=== PATIENT | male | born 1970 | race Two or more races ===

== ENCOUNTER 2018-01-17 14:57 | Inpatient (IN) | payer OTHER ==
[2018-01-17] VITALS (7 sets, daily range): BP systolic 95–129; BP diastolic 41–76
[~2018-01-17] VITALS: Ht 165.1 cm; Wt 73.1 kg
[2018-01-17] MEDS ORDERED: SODIUM CHLORIDE 0.9% 1,000 ML IV ONE ×2 (15:02)
[2018-01-17] MEDS ORDERED: PANTOPRAZOLE 40 MG/10 ML VIAL IV ONE (15:15)
[2018-01-17] MEDS ORDERED: ONDANSETRON HCL 4 MG/2 ML VIAL IV ONE (15:30)
[2018-01-17] MEDS ORDERED: MORPHINE SULFATE 4 MG/ML SYR/VIAL IV ONE (15:30)
[2018-01-17 15:46] LABS: Hematocrit 13.6 % (41.0-53.0); Mean Corpuscular Hemoglobin 21.1 pg (28.0-32.0); Mean Corpuscular Volume 70.2 fL (80.0-100.0); Platelet Count (auto) 285 10^3/uL (140-450); Red Blood Cells 1.94 10^6/uL (4.5-5.90); White Blood Cell 4.6 10^3/uL (4.4-10.8)
[2018-01-17 16:01] LABS: INR 0.94 (0.9-1.15); Partial Thromboplastin Time 17.7 sec (23.78-33.04); Prothrombin Time 10.1 sec (9.27-12.13)
[2018-01-17 16:03] LABS: Hemoglobin 4.1 g/dL (13.5-17.5); Red Cell Distribution Width 21.2 % (11.8-14.3)
[2018-01-17 16:04] LABS: Alanine Aminotransferase 20 U/L (16-61); Albumin 3.3 g/dL (3.4-5.0); Alkaline Phosphatase 56 U/L (45-117); Anion Gap 4 (5-15); Aspartate Aminotransferase 11 U/L (15-37); BUN/Creatinine Ratio 11.4; Bilirubin, Total 0.3 mg/dL (0.2-1.0); Blood Urea Nitrogen 9 mg/dL (7-18); Calcium 7.5 mg/dL (8.5-10.1); Carbon Dioxide 26 mmol/L (21-32); Chloride 112 mmol/L (98-107); GFR African American 135 mL/min; GFR Non-African American 111 mL/min; Glucose 99 mg/dL (74-106); Potassium 3.6 mmol/L (3.5-5.1); Sodium 142 mmol/L (136-145); Total Protein 6.6 g/dL (6.4-8.2)
[2018-01-17 16:05] LABS: Band Neutrophils % (manual) 0; Basophils % (manual) 0 (0.0-2.0); Blast Cells 0; Eosinophils % (manual) 0 (0-7); Metamyelocytes % 0; Myelocytes % 0; Promyelocytes % 0; Reactive Lymphocytes 0
[2018-01-17] MEDS ORDERED: TAMSULOSIN HYDROCHLORIDE 0.4 MG CAP PO ONE (17:15)
[2018-01-17 17:33] LABS: Lymphocytes % (manual) 22 (10.0-50.0); Monocytes % (manual) 9 (0-12)
[2018-01-17] MEDS ORDERED: NITROGLYCERIN 0.4 MG SL TAB SL PRN (17:45)
[2018-01-17] MEDS ORDERED: MORPHINE SULF INJ 2 MG/ML SYRINGE 1ML IV PRN (17:45)
[2018-01-17] MEDS: metFORMIN HYDROCHLORIDE 500 MG TAB PO SCH (17:49)
[2018-01-17] MEDS ORDERED: DEXTROSE (50%) 50ML SYRG IV PRN (18:00)
[2018-01-17 18:11] LABS: Urine Bacteria NONE SEEN /hpf (None Seen); Urine Blood Negative /uL (Negative); Urine Specific Gravity 1.004 (1.001-1.035); Urine WBC <1 /hpf (0 - 3)
[2018-01-17] MEDS: ACCU-CHEK COMFORT CURVE STRIP VI SCH (21:32)
[2018-01-17] MEDS: FERROUS SULFATE 325 MG TAB PO SCH (21:32)
[2018-01-17] MEDS: InsuLIN REG 1unit/0.01ml Soln (100units/ml) SC SCH (21:32)
[2018-01-18] VITALS (25 sets, daily range): BP systolic 84–117; BP diastolic 49–85
[2018-01-18] MEDS: ACCU-CHEK COMFORT CURVE STRIP VI SCH ×4 (06:34→22:00)
[2018-01-18] MEDS: SODIUM CHLORIDE 0.9% 1,000 ML IV SCH ×3 (06:35→13:45)
[2018-01-18] MEDS: InsuLIN REG 1unit/0.01ml Soln (100units/ml) SC SCH ×4 (06:35→22:00)
[2018-01-18 07:42] LABS: Basophils # (auto) 0 uL; Eosinophils # (auto) 0 uL; Red Cell Distribution Width 18.9 % (11.8-14.3); White Blood Cell 4.6 10^3/uL (4.4-10.8)
[2018-01-18 07:44] LABS: Basophils % (auto) 0.3 % (0.0-2.0); Eosinophils % (auto) 0.3 % (0.0-7.0); Hematocrit 21.5 % (41.0-53.0); Lymphocytes # (auto) 0.6 uL; Mean Corpuscular Volume 75.2 fL (80.0-100.0); Monocytes # (auto) 0.4 uL; Monocytes % (auto) 9.2 % (0.0-12.0); Neutrophils # (auto) 3.6 uL; Neutrophils % (auto) 77.2 % (37.0-80.0); Nucleated Red Blood Cells % 1.9 %; Platelet Count (auto) 219 10^3/uL (140-450); Red Blood Cells 2.86 10^6/uL (4.5-5.90)
[2018-01-18 08:07] LABS: Hemoglobin 6.9 g/dL (13.5-17.5)
[2018-01-18] MEDS: metFORMIN HYDROCHLORIDE 500 MG TAB PO SCH ×2 (08:10→17:22)
[2018-01-18 08:36] LABS: Urine Bacteria FEW /hpf (None Seen); Urine Blood Negative /uL (Negative); Urine Specific Gravity 1.007 (1.001-1.035); Urine WBC 1 /hpf (0 - 3)
[2018-01-18] MEDS: FERROUS SULFATE 325 MG TAB PO SCH ×3 (09:52→22:18)
[2018-01-18] MEDS: PANTOPRAZOLE 40 MG/10 ML VIAL IV SCH ×2 (09:52→22:18)
[2018-01-19] VITALS (7 sets, daily range): BP systolic 93–142; BP diastolic 54–81
[2018-01-19 06:15] LABS: Basophils # (auto) 0 uL; Hemoglobin 8.3 g/dL (13.5-17.5); Nucleated Red Blood Cells % 2.9 %
[2018-01-19 06:18] LABS: Basophils % (auto) 0.7 % (0.0-2.0); Eosinophils # (auto) 0 uL; Eosinophils % (auto) 0.7 % (0.0-7.0); Hematocrit 25.6 % (41.0-53.0); Lymphocytes % (auto) 20.1 % (10.0-50.0); Mean Corpuscular Hemoglobin 24.5 pg (28.0-32.0); Mean Corpuscular Hgb Conc. 32.2 g/dL (32.0-36.0); Mean Corpuscular Volume 76.2 fL (80.0-100.0); Monocytes # (auto) 0.5 uL; Monocytes % (auto) 9.6 % (0.0-12.0); Neutrophils # (auto) 3.4 uL; Neutrophils % (auto) 68.9 % (37.0-80.0); Platelet Count (auto) 200 10^3/uL (140-450); Red Blood Cells 3.37 10^6/uL (4.5-5.90); Red Cell Distribution Width 18.1 % (11.8-14.3)
[2018-01-19] MEDS: SODIUM CHLORIDE 0.9% 1,000 ML IV SCH ×3 (06:31→19:45)
[2018-01-19] MEDS: InsuLIN REG 1unit/0.01ml Soln (100units/ml) SC SCH ×4 (06:45→22:00)
[2018-01-19] MEDS: ACCU-CHEK COMFORT CURVE STRIP VI SCH ×4 (06:45→22:00)
[2018-01-19] MEDS: metFORMIN HYDROCHLORIDE 500 MG TAB PO SCH ×2 (08:14→17:44)
[2018-01-19] MEDS: FERROUS SULFATE 325 MG TAB PO SCH ×2 (09:35→22:07)
[2018-01-19] MEDS: PANTOPRAZOLE 40 MG/10 ML VIAL IV SCH ×2 (09:35→22:07)
[2018-01-19] MEDS ORDERED: ATOR10TA PO (16:48)
[2018-01-19] MEDS ORDERED: METF-370 PO (16:48)
[2018-01-19] MEDS ORDERED: FERR-20 PO (16:48)
[2018-01-19] MEDS ORDERED: RANI-229 PO (16:48)
[2018-01-19] MEDS ORDERED: DOCU100T15 PO (16:48)
[2018-01-20 06:18] LABS: Basophils # (auto) 0 uL; Eosinophils # (auto) 0.1 uL; White Blood Cell 5.1 10^3/uL (4.4-10.8)
[2018-01-20 06:20] LABS: Basophils % (auto) 0.6 % (0.0-2.0); Hematocrit 25.2 % (41.0-53.0); Hemoglobin 8.2 g/dL (13.5-17.5); Lymphocytes # (auto) 0.8 uL; Lymphocytes % (auto) 16.4 % (10.0-50.0); Mean Corpuscular Hemoglobin 24.9 pg (28.0-32.0); Mean Corpuscular Hgb Conc. 32.3 g/dL (32.0-36.0); Mean Corpuscular Volume 77.1 fL (80.0-100.0); Monocytes # (auto) 0.4 uL; Neutrophils # (auto) 3.8 uL; Nucleated Red Blood Cells % 1.8 %; Platelet Count (auto) 205 10^3/uL (140-450); Red Blood Cells 3.27 10^6/uL (4.5-5.90); Red Cell Distribution Width 18.3 % (11.8-14.3)
[2018-01-20] MEDS: InsuLIN REG 1unit/0.01ml Soln (100units/ml) SC SCH ×4 (07:00→22:00)
[2018-01-20] MEDS: ACCU-CHEK COMFORT CURVE STRIP VI SCH ×4 (07:06→22:00)
[2018-01-20] MEDS: SODIUM CHLORIDE 0.9% 1,000 ML IV SCH ×2 (07:08→16:07)
[2018-01-20 08:00] VITALS: BP 102/52
[2018-01-20 08:30] VITALS: BP 103/52
[2018-01-20] MEDS: FERROUS SULFATE 325 MG TAB PO SCH ×2 (09:19→22:24)
[2018-01-20] MEDS: PANTOPRAZOLE 40 MG/10 ML VIAL IV SCH ×2 (09:19→22:20)
[2018-01-20] MEDS: metFORMIN HYDROCHLORIDE 500 MG TAB PO SCH ×2 (09:19→18:38)
[2018-01-20 12:57] VITALS: BP 101/52
[2018-01-20 16:58] VITALS: BP 91/56
[2018-01-20 20:00] VITALS: BP 102/57
[2018-01-20] MEDS ORDERED: GOLYTELY 4L KIT PO ONE (21:00)
[2018-01-20 21:39] VITALS: BP 102/57
[2018-01-21 04:55] VITALS: BP 90/57
[2018-01-21] MEDS: SODIUM CHLORIDE 0.9% 1,000 ML IV SCH ×3 (06:30→18:07)
[2018-01-21 06:51] LABS: Basophils # (auto) 0 uL; Basophils % (auto) 0.6 % (0.0-2.0); Eosinophils # (auto) 0 uL; Neutrophils # (auto) 5.2 uL
[2018-01-21 06:53] LABS: Eosinophils % (auto) 0.7 % (0.0-7.0); Hematocrit 24.6 % (41.0-53.0); Lymphocytes # (auto) 0.9 uL; Lymphocytes % (auto) 13.3 % (10.0-50.0); Mean Corpuscular Hemoglobin 25.3 pg (28.0-32.0); Mean Corpuscular Hgb Conc. 32.4 g/dL (32.0-36.0); Monocytes # (auto) 0.4 uL; Monocytes % (auto) 6.5 % (0.0-12.0); Neutrophils % (auto) 78.9 % (37.0-80.0); Nucleated Red Blood Cells % 1.1 %; Platelet Count (auto) 195 10^3/uL (140-450); Red Blood Cells 3.15 10^6/uL (4.5-5.90); Red Cell Distribution Width 18.2 % (11.8-14.3); White Blood Cell 6.6 10^3/uL (4.4-10.8)
[2018-01-21] MEDS: ACCU-CHEK COMFORT CURVE STRIP VI SCH ×4 (07:00→22:00)
[2018-01-21] MEDS: InsuLIN REG 1unit/0.01ml Soln (100units/ml) SC SCH ×4 (07:00→22:00)
[2018-01-21 07:03] LABS: INR 0.98 (0.9-1.15); Partial Thromboplastin Time 23.1 sec (23.78-33.04); Prothrombin Time 10.5 sec (9.27-12.13)
[2018-01-21] MEDS: metFORMIN HYDROCHLORIDE 500 MG TAB PO SCH ×2 (08:00→18:00)
[2018-01-21] MEDS ORDERED: SODIUM CHLORIDE LOCK 10 ML ONE (08:34)
[2018-01-21] MEDS ORDERED: MIDAZOLAM HCL 5 MG/ML-1ML VIAL ONE (08:34)
[2018-01-21] MEDS ORDERED: fentaNYL CITRATE 100 MCG/2 ML VL ONE (08:34)
[2018-01-21] MEDS ORDERED: diphenhdrAMINE HCL 50 MG/1 ML VL ONE (08:34)
[2018-01-21 09:00] VITALS: BP 95/52
[2018-01-21] MEDS: FERROUS SULFATE 325 MG TAB PO SCH ×2 (10:00→22:00)
[2018-01-21] MEDS: PANTOPRAZOLE 40 MG/10 ML VIAL IV SCH ×2 (10:29→22:21)
[2018-01-21 13:00] VITALS: BP 93/54
[2018-01-21 16:24] VITALS: BP 102/40
[2018-01-21] MEDS ORDERED: GOLYTELY 4L KIT PO ONE (18:15)
[2018-01-21 22:00] VITALS: BP 105/63
[2018-01-22] MEDS: SODIUM CHLORIDE 0.9% 1,000 ML IV SCH ×3 (03:57→17:54)
[2018-01-22 05:00] VITALS: BP 93/52
[2018-01-22] MEDS: ACCU-CHEK COMFORT CURVE STRIP VI SCH ×4 (06:07→22:00)
[2018-01-22] MEDS: InsuLIN REG 1unit/0.01ml Soln (100units/ml) SC SCH ×4 (06:07→22:00)
[2018-01-22] MEDS: metFORMIN HYDROCHLORIDE 500 MG TAB PO SCH ×2 (08:00→17:55)
[2018-01-22 08:30] LABS: Hemoglobin 7.8 g/dL (13.5-17.5); Mean Corpuscular Hgb Conc. 31.7 g/dL (32.0-36.0); Red Cell Distribution Width 18.8 % (11.8-14.3); White Blood Cell 3.7 10^3/uL (4.4-10.8)
[2018-01-22 08:32] LABS: Hematocrit 24.6 % (41.0-53.0); Mean Corpuscular Hemoglobin 24.7 pg (28.0-32.0); Platelet Count (auto) 205 10^3/uL (140-450); Red Blood Cells 3.16 10^6/uL (4.5-5.90)
[2018-01-22 08:44] LABS: Band Neutrophils % (manual) 0; Blast Cells 0; Metamyelocytes % 0; Myelocytes % 0; Promyelocytes % 0; Reactive Lymphocytes 0
[2018-01-22 08:47] VITALS: BP 100/71
[2018-01-22] MEDS ORDERED: SODIUM CHLORIDE LOCK 0 ML ONE (08:49)
[2018-01-22] MEDS ORDERED: diphenhdrAMINE HCL 50 MG/1 ML VL ONE (08:50)
[2018-01-22] MEDS ORDERED: MIDAZOLAM HCL 5 MG/ML-1ML VIAL ONE (08:50)
[2018-01-22] MEDS ORDERED: fentaNYL CITRATE 100 MCG/2 ML VL ONE (08:50)
[2018-01-22 09:04] LABS: Albumin 3.1 g/dL (3.4-5.0); BUN/Creatinine Ratio 4.3; Bilirubin, Total 0.8 mg/dL (0.2-1.0); Calcium 7.9 mg/dL (8.5-10.1); Potassium 3.4 mmol/L (3.5-5.1); Total Protein 6.2 g/dL (6.4-8.2)
[2018-01-22 09:07] LABS: Basophils % (manual) 1 (0.0-2.0); Eosinophils % (manual) 1 (0-7); Lymphocytes % (manual) 19 (10.0-50.0); Monocytes % (manual) 9 (0-12)
[2018-01-22] MEDS: PANTOPRAZOLE 40 MG/10 ML VIAL IV SCH ×2 (09:42→22:12)
[2018-01-22] MEDS: FERROUS SULFATE 325 MG TAB PO SCH ×2 (10:00→22:12)
[2018-01-22 12:35] VITALS: BP 104/60
[2018-01-22 17:24] VITALS: BP 93/43
[2018-01-22 22:00] VITALS: BP 97/51
[2018-01-23] VITALS (8 sets, daily range): BP systolic 88–115; BP diastolic 42–64
[2018-01-23] MEDS: SODIUM CHLORIDE 0.9% 1,000 ML IV SCH ×3 (01:49→23:45)
[2018-01-23] MEDS: InsuLIN REG 1unit/0.01ml Soln (100units/ml) SC SCH ×4 (06:12→21:58)
[2018-01-23] MEDS: ACCU-CHEK COMFORT CURVE STRIP VI SCH ×4 (06:13→21:59)
[2018-01-23] MEDS: metFORMIN HYDROCHLORIDE 500 MG TAB PO SCH ×2 (08:16→18:18)
[2018-01-23] MEDS: PANTOPRAZOLE 40 MG/10 ML VIAL IV SCH ×2 (10:39→21:58)
[2018-01-23] MEDS: FERROUS SULFATE 325 MG TAB PO SCH ×3 (10:39→21:58)
[2018-01-23] MEDS ORDERED: metroNIDAZOLE 500MG/100ML 100 ML IV ONE (16:45)
[2018-01-23] MEDS ORDERED: PIPERACILLIN-TAZOB 3.375GM 100 ML IV ONE (16:45)
[2018-01-24 03:07] VITALS: BP 110/60
[2018-01-24 04:43] VITALS: BP 91/59
[2018-01-24] MEDS: InsuLIN REG 1unit/0.01ml Soln (100units/ml) SC SCH ×4 (06:16→21:39)
[2018-01-24] MEDS: ACCU-CHEK COMFORT CURVE STRIP VI SCH ×4 (06:17→21:39)
[2018-01-24] MEDS ORDERED: BUPIVACAINE HCL 50 ML ONE (06:28)
[2018-01-24] MEDS ORDERED: LIDOCAINE 1% HCL (LOCAL ANESTH.) INJ 20ML MDV ONE (06:28)
[2018-01-24] MEDS ORDERED: SUCCINYLCHOLINE CHLORIDE 20 MG/ML 10ML VIAL IV ONE (06:30)
[2018-01-24] MEDS ORDERED: LIDOCAINE 1% (LOCAL ANESTH.) PF 5ml SDV ONE (06:30)
[2018-01-24] MEDS ORDERED: ETOMIDATE (2MG/ML) 20ML VIAL IV ONE (06:33)
[2018-01-24] MEDS ORDERED: ROCURONIUM 10MG/ML 10ML VIAL IV ONE (06:33)
[2018-01-24] MEDS ORDERED: MIDAZOLAM HCL 1MG/1ML-2 ML VIAL ONE (06:33)
[2018-01-24] MEDS ORDERED: fentaNYL CITRATE 100 MCG/2 ML VL ONE (07:00)
[2018-01-24] MEDS ORDERED: ACCU-CHEK COMFORT CURVE STRIP VI ONE (07:15)
[2018-01-24] MEDS ORDERED: ONDANSETRON HCL 4 MG/2 ML VIAL IV ONE (07:15)
[2018-01-24] MEDS ORDERED: HYDROmorphone HCL 2 MG/ML VL IV PRN (07:15)
[2018-01-24] MEDS ORDERED: ePHEDrine SULFATE 50 MG/ML AMP IV PRN (07:15)
[2018-01-24] MEDS ORDERED: NALOXONE HCL 0.4 MG/ML VIAL IV PRN (07:15)
[2018-01-24] MEDS ORDERED: GELATIN 1 SPONGE SIZE 100 TOP ONE (07:35)
[2018-01-24] MEDS ORDERED: GELATIN 1 SPONGE SIZE 50 TOP ONE (07:35)
[2018-01-24] MEDS: metFORMIN HYDROCHLORIDE 500 MG TAB PO SCH ×2 (08:00→17:41)
[2018-01-24] MEDS: HYDROmorphone HCL 2 MG/ML VL IV PRN ×8 (08:56→23:15)
[2018-01-24] MEDS: SODIUM CHLORIDE 0.9% 1,000 ML IV SCH ×2 (09:31→19:45)
[2018-01-24 09:45] LABS: Basophils # (auto) 0 uL; Eosinophils # (auto) 0 uL; Eosinophils % (auto) 0.4 % (0.0-7.0); Hematocrit 28.7 % (41.0-53.0); White Blood Cell 7.7 10^3/uL (4.4-10.8)
[2018-01-24 09:46] LABS: Basophils % (auto) 0.6 % (0.0-2.0); Hemoglobin 9.2 g/dL (13.5-17.5); Lymphocytes # (auto) 1.4 uL; Lymphocytes % (auto) 18.4 % (10.0-50.0); Mean Corpuscular Hemoglobin 26.3 pg (28.0-32.0); Mean Corpuscular Hgb Conc. 32.2 g/dL (32.0-36.0); Mean Corpuscular Volume 81.7 fL (80.0-100.0); Monocytes # (auto) 0.6 uL; Monocytes % (auto) 7.2 % (0.0-12.0); Neutrophils # (auto) 5.7 uL; Neutrophils % (auto) 73.4 % (37.0-80.0); Nucleated Red Blood Cells % 0.3 %; Platelet Count (auto) 187 10^3/uL (140-450); Red Blood Cells 3.51 10^6/uL (4.5-5.90); Red Cell Distribution Width 18.9 % (11.8-14.3)
[2018-01-24] MEDS: PANTOPRAZOLE 40 MG/10 ML VIAL IV SCH ×2 (09:52→21:38)
[2018-01-24] MEDS: FERROUS SULFATE 325 MG TAB PO SCH ×2 (09:52→21:39)
[2018-01-24] MEDS: MILK OF MAGNESIA 30ML SUSP PO SCH (09:52)
[2018-01-24] MEDS: OXYCODONE W/ ACETAMINOPHEN 5/325MG TABLET PO PRN ×2 (10:11→21:15)
[2018-01-24 10:12] LABS: BUN/Creatinine Ratio 10.5; Calcium 7.5 mg/dL (8.5-10.1); Potassium 3.4 mmol/L (3.5-5.1)
[2018-01-24] MEDS: DOCUSATE SOD 100 MG CAP PO SCH ×2 (13:32→21:39)
[2018-01-24] MEDS ORDERED: POTASSIUM CHL 20 Meq TABLET PO ONE (15:15)
[2018-01-24 17:00] VITALS: BP 108/55
[2018-01-24 20:00] VITALS: BP 120/68
[2018-01-24] MEDS: SENNA 8.6 MG TAB PO SCH (21:39)
[2018-01-24 22:00] VITALS: BP 120/68
[2018-01-25 05:00] VITALS: BP 89/49
[2018-01-25 06:16] LABS: Basophils # (auto) 0 uL; Eosinophils # (auto) 0 uL; Lymphocytes # (auto) 0.7 uL; Monocytes # (auto) 0.7 uL
[2018-01-25 06:19] LABS: Basophils % (auto) 0.3 % (0.0-2.0); Eosinophils % (auto) 0.1 % (0.0-7.0); Hematocrit 28.5 % (41.0-53.0); Hemoglobin 9.3 g/dL (13.5-17.5); Lymphocytes % (auto) 9.4 % (10.0-50.0); Mean Corpuscular Hemoglobin 26.3 pg (28.0-32.0); Mean Corpuscular Hgb Conc. 32.5 g/dL (32.0-36.0); Mean Corpuscular Volume 80.8 fL (80.0-100.0); Monocytes % (auto) 8.3 % (0.0-12.0); Neutrophils # (auto) 6.5 uL; Neutrophils % (auto) 81.9 % (37.0-80.0); Nucleated Red Blood Cells % 0.3 %; Platelet Count (auto) 192 10^3/uL (140-450); Red Blood Cells 3.53 10^6/uL (4.5-5.90); Red Cell Distribution Width 18.5 % (11.8-14.3); White Blood Cell 7.9 10^3/uL (4.4-10.8)
[2018-01-25] MEDS: DOCUSATE SOD 100 MG CAP PO SCH ×3 (06:29→21:33)
[2018-01-25] MEDS: SODIUM CHLORIDE 0.9% 1,000 ML IV SCH ×2 (06:29→17:54)
[2018-01-25] MEDS: ACCU-CHEK COMFORT CURVE STRIP VI SCH ×4 (06:30→21:38)
[2018-01-25] MEDS: InsuLIN REG 1unit/0.01ml Soln (100units/ml) SC SCH ×4 (06:30→21:37)
[2018-01-25 06:31] LABS: BUN/Creatinine Ratio 7.5; Calcium 7.7 mg/dL (8.5-10.1); Potassium 3.5 mmol/L (3.5-5.1)
[2018-01-25] MEDS: metFORMIN HYDROCHLORIDE 500 MG TAB PO SCH ×2 (08:19→18:48)
[2018-01-25 09:00] VITALS: BP 106/54
[2018-01-25] MEDS: PANTOPRAZOLE 40 MG/10 ML VIAL IV SCH ×2 (10:24→21:32)
[2018-01-25] MEDS: FERROUS SULFATE 325 MG TAB PO SCH ×2 (10:24→21:34)
[2018-01-25] MEDS: MILK OF MAGNESIA 30ML SUSP PO SCH (10:24)
[2018-01-25 13:00] VITALS: BP 107/60
[2018-01-25 17:00] VITALS: BP 112/56
[2018-01-25] MEDS: SENNA 8.6 MG TAB PO SCH (21:33)
[2018-01-25] MEDS: OXYCODONE W/ ACETAMINOPHEN 5/325MG TABLET PO PRN (21:33)
[2018-01-25 21:52] VITALS: BP 94/56
[2018-01-26] VITALS (7 sets, daily range): BP systolic 94–106; BP diastolic 46–66
[2018-01-26] MEDS: OXYCODONE W/ ACETAMINOPHEN 5/325MG TABLET PO PRN ×3 (04:00→21:48)
[2018-01-26] MEDS: SODIUM CHLORIDE 0.9% 1,000 ML IV SCH (04:09)
[2018-01-26] MEDS: DOCUSATE SOD 100 MG CAP PO SCH ×3 (06:26→21:49)
[2018-01-26] MEDS: InsuLIN REG 1unit/0.01ml Soln (100units/ml) SC SCH ×4 (06:26→21:57)
[2018-01-26] MEDS: ACCU-CHEK COMFORT CURVE STRIP VI SCH ×4 (06:27→21:57)
[2018-01-26] MEDS: metFORMIN HYDROCHLORIDE 500 MG TAB PO SCH ×2 (08:23→18:51)
[2018-01-26] MEDS: PANTOPRAZOLE 40 MG/10 ML VIAL IV SCH ×2 (09:49→21:47)
[2018-01-26] MEDS: MILK OF MAGNESIA 30ML SUSP PO SCH (09:49)
[2018-01-26] MEDS: FERROUS SULFATE 325 MG TAB PO SCH ×2 (09:49→21:48)
[2018-01-26] MEDS: PRAMIPEXOLE DIHYDROCHLORIDE MO 0.25 MG TAB PO SCH ×2 (16:00→21:48)
[2018-01-26] MEDS: SENNA 8.6 MG TAB PO SCH (21:49)
[2018-01-27 05:29] VITALS: BP 94/74
[2018-01-27] MEDS: ACCU-CHEK COMFORT CURVE STRIP VI SCH ×4 (06:04→21:23)
[2018-01-27] MEDS: InsuLIN REG 1unit/0.01ml Soln (100units/ml) SC SCH ×4 (06:04→21:24)
[2018-01-27] MEDS: PRAMIPEXOLE DIHYDROCHLORIDE MO 0.25 MG TAB PO SCH ×3 (06:04→21:19)
[2018-01-27] MEDS: DOCUSATE SOD 100 MG CAP PO SCH ×3 (06:04→21:19)
[2018-01-27 09:00] VITALS: BP 92/43
[2018-01-27] MEDS: metFORMIN HYDROCHLORIDE 500 MG TAB PO SCH ×2 (09:20→18:30)
[2018-01-27] MEDS: FERROUS SULFATE 325 MG TAB PO SCH ×2 (09:20→21:19)
[2018-01-27] MEDS: OXYCODONE W/ ACETAMINOPHEN 5/325MG TABLET PO PRN ×2 (09:21→13:33)
[2018-01-27] MEDS: PANTOPRAZOLE 40 MG/10 ML VIAL IV SCH ×2 (09:21→21:19)
[2018-01-27] MEDS: MILK OF MAGNESIA 30ML SUSP PO SCH (09:21)
[2018-01-27 12:00] VITALS: BP 114/68
[2018-01-27 16:39] VITALS: BP 102/62
[2018-01-27 20:00] VITALS: BP 104/66
[2018-01-27] MEDS: SENNA 8.6 MG TAB PO SCH (21:19)
[2018-01-27 22:00] VITALS: BP 112/75
[2018-01-28 05:00] VITALS: BP 90/44
[2018-01-28] MEDS: OXYCODONE W/ ACETAMINOPHEN 5/325MG TABLET PO PRN ×2 (05:48→17:10)
[2018-01-28] MEDS: PRAMIPEXOLE DIHYDROCHLORIDE MO 0.25 MG TAB PO SCH ×3 (05:59→19:36)
[2018-01-28] MEDS: DOCUSATE SOD 100 MG CAP PO SCH ×3 (05:59→19:36)
[2018-01-28] MEDS: ACCU-CHEK COMFORT CURVE STRIP VI SCH ×4 (06:00→19:36)
[2018-01-28] MEDS: InsuLIN REG 1unit/0.01ml Soln (100units/ml) SC SCH ×4 (06:00→19:36)
[2018-01-28 06:23] LABS: Hemoglobin 9.3 g/dL (13.5-17.5); Red Cell Distribution Width 18.7 % (11.8-14.3)
[2018-01-28 06:25] LABS: Hematocrit 29.1 % (41.0-53.0); Mean Corpuscular Hemoglobin 26.1 pg (28.0-32.0); Mean Corpuscular Volume 81.5 fL (80.0-100.0); Platelet Count (auto) 323 10^3/uL (140-450); Red Blood Cells 3.57 10^6/uL (4.5-5.90)
[2018-01-28 06:29] LABS: Band Neutrophils % (manual) 0; Basophils % (manual) 0 (0.0-2.0); Blast Cells 0; Metamyelocytes % 0; Myelocytes % 0; Promyelocytes % 0; Reactive Lymphocytes 0
[2018-01-28 07:37] LABS: Eosinophils % (manual) 3 (0-7); Lymphocytes % (manual) 16 (10.0-50.0); Monocytes % (manual) 7 (0-12)
[2018-01-28 09:00] VITALS: BP 111/54
[2018-01-28] MEDS: metFORMIN HYDROCHLORIDE 500 MG TAB PO SCH ×2 (09:06→17:59)
[2018-01-28] MEDS: PANTOPRAZOLE 40 MG/10 ML VIAL IV SCH ×2 (10:43→19:36)
[2018-01-28] MEDS: FERROUS SULFATE 325 MG TAB PO SCH ×2 (10:43→19:36)
[2018-01-28] MEDS: MILK OF MAGNESIA 30ML SUSP PO SCH (10:43)
[2018-01-28] MEDS: HYDROmorphone HCL 2 MG/ML VL IV PRN (12:34)
[2018-01-28 13:00] VITALS: BP 108/59
[2018-01-28 17:00] VITALS: BP 99/58
[2018-01-28] MEDS: SENNA 8.6 MG TAB PO SCH (19:36)
[2018-01-28 20:01] VITALS: BP 99/58
== END 2018-01-28 21:30 | DRG 348 ==
LOC: EDBD 14:57 → EEVIPCON 14:57 → ER 14:57 → OVERFLOW 14:58 → EAST 19:30
PROVIDERS: ADMIT Internal Medicine; ATTEND Internal Medicine
PROC: 30233N1 Transfusion of Nonautologous Red Blood Cells into Peripheral Vein, Percutaneous Approach (ICD-10-PCS; principal; 2018-01-17)
PROC: 0DJ08ZZ Inspection of Upper Intestinal Tract, Via Natural or Artificial Opening Endoscopic (ICD-10-PCS; 2018-01-22)
PROC: 0DBK8ZX Excision of Ascending Colon, Via Natural or Artificial Opening Endoscopic, Diagnostic (ICD-10-PCS; 2018-01-22)
PROC: 0DBH8ZX Excision of Cecum, Via Natural or Artificial Opening Endoscopic, Diagnostic (ICD-10-PCS; 2018-01-22)
PROC: 06BY4ZC Excision of Hemorrhoidal Plexus, Percutaneous Endoscopic Approach (ICD-10-PCS; 2018-01-24)
DX: K64.8 Other hemorrhoids (principal); K63.3 Ulcer of intestine; K62.5 Hemorrhage of anus and rectum; D62 Acute posthemorrhagic anemia; D64.9 Anemia, unspecified; I95.9 Hypotension, unspecified; E11.9 Type 2 diabetes mellitus without complications; E66.9 Obesity, unspecified; K21.9 Gastro-esophageal reflux disease without esophagitis; E78.00 Pure hypercholesterolemia, unspecified; F17.210 Nicotine dependence, cigarettes, uncomplicated; E78.5 Hyperlipidemia, unspecified; I10 Essential (primary) hypertension; K59.00 Constipation, unspecified; N40.0 Benign prostatic hyperplasia without lower urinary tract symptoms; J44.9 Chronic obstructive pulmonary disease, unspecified; Z68.26 Body mass index [BMI] 26.0-26.9, adult; E87.8 Other disorders of electrolyte and fluid balance, not elsewhere classified
CPT/HCPCS: 36415; 36430; 43235; 45380; 71045; 80048; 80053; 81001; 82962; 84443; 84484; 85007; 85025; 85027; 85045; 85610; 85730; 86850; 86900; 86901; 86920; 96361; 96374; 96375; C9113; J0330; J2001; J2250; J2405; J2543; J3490